=== PATIENT | female | born 1970 | race Caucasian/White ===

== ENCOUNTER 2025-06-28 18:33 | Emergency (ER) | payer OTHER ==
[2025-06-28 18:50] VITALS: BP 139/91; PULSE 82; RESP 18; TEMP 98.2; BMI 19.2
== END 2025-06-28 20:13 | disposition home or self-care (01) ==
LOC: FER 18:33
DX: S61.011A Laceration without foreign body of right thumb without damage to nail, initial encounter (principal); W25.XXXA Contact with sharp glass, initial encounter
CPT/HCPCS: 73130-TC-RT-FY; 76882-TC-RT; 99284-25